=== PATIENT | female | born 1935 | race Caucasian/White ===

== ENCOUNTER 2018-03-26 11:52 | Outpatient (CLI) | payer MEDICARE, OTHER ==
--- NOTE | 2018-03-26 14:52 | CT ---
CT OF THE THORACIC SPINE: Date: 03-26-[address] of the thoracic spine was done and compared with a 05-02-17 study done at [facility]. No fracture was noted on these images. Overall, there has been very minor amounts of change management expert time . The quality of the bone seems slightly more spotty and perhaps a little more inhomogeneous and oste oporotic than before, but other than this, there were no dramatic changes. Laminectomy defects are no jean paul starting at about the T7-8 level down to the T9-10 level and T10-11 levels. Numerous degenerative changes are present throughout the spine which have been previously described. Multiple levels show posterior osteophytes encroaching upon the thecal sac, many at the laminectomy levels. No area of foc al bony destruction was seen. 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 Interstitial changes are seen in the lung bases in particular, which is a chronic finding. A hiatal h ernia was noted. There is generalized dilation of the thoracic aorta without a focal aneurysm. IMPRESSION: 1. 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 No evidence of new fracture or dramatic change. 2. Mid to lower thoracic laminectomy is noted. The appearance is also similar to before. 3. Prominent interstitial lung changes. 4. Other findings as listed above. POS: HOME
--- NOTE | 2018-03-26 20:01 | CT ---
CT OF THE LUMBAR SPINE: 03/26/18 Comparison is made with the prior CT exam of 05/02/17. Overall, the appearance is quite similar. No new fracture was seen. Mild scoliosis convexed right is present with multilevel degenerative disc disease, large osteophytes, and postoperative changes as pr eviously. This study covers an area from mid T11 through the top of the sacrum. Findings by level fol low: T11-T12: Some mild right foraminal narrowing due to osteophytes. T12-L1: Narrowed disc space. Moderate bilateral foraminal narrowing. Some osteophytes posteriorly eff aces the thecal sac slightly. L1-L2: Large posterior osteophytes indent the thecal sac at this level. A laminectomy is present. The re is moderate to severe bilateral foraminal narrowing. L2-L3: There are large amounts of posterior osteophyte and severe facet arthritis. The foramina are p atent with only slight narrowing on the left. A laminectomy is present at this level as well. L3-L4: Mild to moderate left foraminal narrowing and mild to moderate right foraminal narrowing. Sign ificant facet arthritis. Laminectomy present at this level. L4-L5: Laminectomy present. Mild right foraminal narrowing and moderate left foraminal narrowing. The re may be disc in the right neural foramen. It is more difficult to tell about the left neural forame n. MRI would be much better in this patient. L5-S1: Central disc protrusion which effaces the thecal sac. This was present previously. There is mi ld bilateral foraminal narrowing. IMPRESSION: Multilevel degenerative disc disease and foraminal narrowing. Disc protrusion at L5-S1, but no differ ent than before. Overall, the appearance is fairly similar to the prior study. POS: HOME
== END 2018-03-26 11:53 | disposition home or self-care (01) ==
LOC: BURCT 11:52
DX: M51.36 Other intervertebral disc degeneration, lumbar region (principal); M48.061 Spinal stenosis, lumbar region without neurogenic claudication; M51.27 Other intervertebral disc displacement, lumbosacral region; M47.814 Spondylosis without myelopathy or radiculopathy, thoracic region; K44.9 Diaphragmatic hernia without obstruction or gangrene; I77.810 Thoracic aortic ectasia; Z98.890 Other specified postprocedural states
CPT/HCPCS: 72128; 72131

== ENCOUNTER 2018-05-28 14:20 | Emergency (ER) | payer MEDICARE, OTHER ==
[2018-05-28] MEDS ORDERED: Ondansetron PF 4 MG/2 ML Vial ONE (14:31)
[2018-05-28 14:47] LABS: #Basophils 0.1 thou/uL (0.0-0.2); #Eosinphils 0.1 thou/uL (0.0-0.7); #Lymphocytes 0.8 thou/uL (1.20-3.40); #Monocytes 0.5 thou/uL (0.11-0.59); #Neutrophils 10.7 thou/uL (1.40-6.50); %Basophils 0.5 % (0.0-1.0); %Eosinophils 0.9 % (0.0-10.0); %Lymphocytes 6.6 % (21.0-51.0); %Monocytes 4.3 % (0.0-10.0); %Neutrophils 87.6 % (42.0-75.0); Hemoglobin 10.3 g/dL (12.0-16.0); Mean Corpuscular HGB CONC 34.3 g/dL (32.0-36.0); Mean Corpuscular Hemoglobin 31.4 pg (27.0-31.0); Mean Corpuscular Volume 91.5 fL (78.0-98.0); Mean Platelet Volume 6.8 fL (7.4-10.4); Platelet Count 195 thou/uL (130-400); RBC Distribution Width 16.2 % (11.5-14.5); Red Blood Cell (RBC) Count 3.29 mill/uL (4.20-5.40); White Blood Cell (WBC) Count 12.2 thou/uL (4.8-10.8)
[2018-05-28 15:01] LABS: ALT (SGPT) 11 U/L (8-55); AST (SGOT) 11 U/L (5-34); Albumin 3.6 g/dL (3.4-4.8); Alkaline Phosphatase 53 U/L (40-150); Anion Gap 17 mmol/L (10-20); BUN (Urea Nitrogen) 42 mg/dL (9.8-20.1); Bilirubin, Total 0.5 mg/dL (0.2-1.2); Calc. Creatinine Clearance 0 mL/min (70-130); Calcium 9.1 mg/dL (7.8-10.44); Carbon Dioxide 21 mmol/L (23-31); Chloride 102 mmol/L (98-107); Estimated GFR-MDRD 25; Globulin 2.9 g/dL (2.4-3.5); Glucose 339 mg/dL (83-110); Potassium 4.4 mmol/L (3.5-5.1); Protein, Total 6.5 g/dL (6.0-8.3); Sodium 136 mmol/L (136-145)
[2018-05-28] MEDS ORDERED: Acetaminophen 325 MG TAB ONE (15:03)
[2018-05-28 16:49] LABS: Bilirubin Negative (Negative); Blood, Urine Trace (Negative); Clarity Cloudy (Clear); Glucose, Urine (Dipstick) 250 mg/dL (Negative); Leukocyte Small (Negative); Nitrite Negative (Negative); Protein, Urine (Dipstick) Negative (Neg-Trace); Urobilinogen 0.2 mg/dL (0.2-1.0)
[2018-05-28 16:50] LABS: Bacteria/HPF 3+ HPF (None Seen); Crystals/HPF None Seen HPF (Negative); Hyaline Casts/LPF NONE SEEN LPF (0-3 Hyaline); Other Casts/LPF None Seen LPF (0-3 Hyaline); Oval Fat Bodies/HPF None Seen HPF (None Seen); RBC/HPF 0-3 HPF (0-3); Renal Epithelial None Seen HPF (0-3); Sperm/HPF None Seen HPF (None Seen); Squamous Epithelial 0-3 HPF (0-3); Transitional Epithelial NONE SEEN HPF (0-3); Trichomonas/HPF None Seen HPF (None Seen); WBC/HPF 21-50 HPF (0-3); Yeast-All Forms None Seen HPF (None Seen)
[2018-05-28] MEDS ORDERED: cefTRIAXone\\ROCEPHIN 1 GM VIAL ONE (17:19)
--- NOTE | 2018-05-28 18:56 | RAD ---
PORTABLE CHEST: 05/28/18 An AP portable film at 1512 is compared with an 11/17/17 study. Mild cardiomegaly is about the same as before. There is congestive change or pleural effusion. There is suggestion of perhaps a little fibrotic change throughout the lungs. See CT report to follow. A ca rdiac pacer remains in place. IMPRESSION: Mild cardiomegaly but no definite acute finding. POS: HOME
--- NOTE | 2018-05-28 19:35 | CT ---
CT OF THE CHEST WITHOUT CONTRAST: 05/28/18 Comparison is made with a 04/30/17 study. Emphysematous changes are present throughout the lungs as well diffuse chronic fibrotic changes. Bron chiectasis is noted in the left lower lobe. There appears to have been a lobectomy on this side as th ere is volume loss on the left. A thickened infiltrative area is seen in the left lower lobe peripher ally near the costophrenic angle that is more substantial than last year's study. It has the appearan ce of chronic infection, but that has increased since last year. Fibrotic changes are particularly no table in the lung bases. Areas of irregular pleural thickening are seen along the right lateral chest wall, but these are not substantially different than before. Within the limitations of a noncontrast study, no mediastinal masses or significant adenopathy was appreciated. Some small scattered nodes a re present. Coronary artery calcifications are present. Scans into the upper abdomen showed no hepatic findings of concern. There is a small hiatal hernia. T he left adrenal gland is slightly nodular but this area is subcentimeter in size and does not need pu rsuit at this time. IMPRESSION: 1. Left lower lobe bronchiectasis. New but chronic appearing infiltrative area in the left lower lobe peripherally. Chronic infection is suspected. 2. Chronic fibrotic changes throughout both lungs. Findings called to Dr. Landry at 1701 on 05/28/18. POS: HOME
== END 2018-05-28 18:06 | disposition short-term general hospital (02) ==
LOC: BURERS 14:20
DX: N39.0 Urinary tract infection, site not specified (principal); J44.9 Chronic obstructive pulmonary disease, unspecified; I11.0 Hypertensive heart disease with heart failure; I50.9 Heart failure, unspecified; E11.9 Type 2 diabetes mellitus without complications; F03.90 Unspecified dementia, unspecified severity, without behavioral disturbance, psychotic disturbance, mood disturbance, and anxiety; Z79.899 Other long term (current) drug therapy; Z79.51 Long term (current) use of inhaled steroids
CPT/HCPCS: 71045; 71250; 80053; 81003; 81015; 83605; 85025; 87040; 87077; 87086; 87186; 96361; 96365; 96375; J0696; J2405